=== PATIENT | male | born 1945 | race Caucasian/White ===

== ENCOUNTER 2021-07-13 09:24 | Emergency (ER) | payer BC ==
[~2021-07-13] VITALS: Ht 186.7 cm; Wt 83.1 kg
[2021-07-13] MEDS ORDERED: iohexol 300mg/ml 100ml inj. ONE (11:04)
[2021-07-13 11:24] LABS: BASOPHILS # (AUTO) 0.1 X10'3 (0-0.2); BASOPHILS % (AUTO) 0.8 % (0-1); EOSINOPHILS # (AUTO) 0.2 X10'3 (0-0.9); EOSINOPHILS % (AUTO) 2.1 % (0-6); HEMATOCRIT 38.6 % (42.0-52.0); HEMOGLOBIN 13.1 g/dl (14.0-17.9); LYMPHOCYTES # (AUTO) 1.4 X10'3 (1.1-4.8); MEAN CORPUSCULAR HEMOGLOBIN 31.8 PG (27.0-31.0); MEAN CORPUSCULAR HGB CONC 33.9 g/dL (33.0-36.5); MEAN CORPUSCULAR VOLUME 93.9 FL (78-98); MEAN PLATELET VOLUME 7.3 FL (7.4-10.4); MONOCYTES # (AUTO) 1.6 X10'3 (0-0.9); MONOCYTES % (AUTO) 15.5 % (2-12); NEUTROPHILS # (AUTO) 7.3 X10'3 (1.8-7.7); NEUTROPHILS % (AUTO) 68.6 % (42-75); PLATELET COUNT 384 X10'3 (140-440); RED BLOOD COUNT 4.11 X10'6 (4.70-6.10); RED CELL DISTRIBUTION WIDTH 12.8 % (11.5-14.5); WHITE BLOOD COUNT 10.6 X10'3 (4.5-11.0)
[2021-07-13 11:25] LABS: ALBUMIN 3.3 G/DL (3.4-5.0); ANION GAP 8 (8-16); BLOOD UREA NITROGEN 13 MG/DL (7-18); BUN/CREATININE RATIO 12.5 (5.4-32.0); CALCIUM 8.9 MG/DL (8.5-10.1); CHLORIDE 101 MMOL/L (99-107); CREATININE 1.04 MG/DL (0.60-1.10); GLUCOSE 109 MG/DL (70-104); SODIUM 138 MMOL/L (135-145); TOTAL CARBON DIOXIDE 28.6 MMOL/L (24-32); eGFR 70 ML/MIN
[2021-07-13] MEDS ORDERED: LIDOcaine Viscous 15ml cup MM ONE (13:05)
[2021-07-13] MEDS ORDERED: clindamycin 600mg/D5W 50ml 50 ML IV ONE (13:40)
[2021-07-13] MEDS ORDERED: CLIN150C8 PO (13:48)
[2021-07-13] MEDS ORDERED: PRED20TA PO (13:48)
[2021-07-13] MEDS ORDERED: dexamethasone inj 6 MG in dextrose 5%-water 100 ML IV ONE (14:15)
[2021-07-13 14:28] VITALS: BP 147/78
== END 2021-07-13 14:29 | disposition home or self-care (01) ==
LOC: ER 09:25
DX: J36 Peritonsillar abscess (principal); Z88.0 Allergy status to penicillin; Z98.890 Other specified postprocedural states
CPT/HCPCS: 36415; 42700; 70491; 80048; 84145; 85025; 96365; 96375; 99285; J1100; J3490; J7060; Q9967; 96368

== ENCOUNTER 2023-03-31 10:43 | Day surgery (SDC) | payer BC ==
[2023-03-31] VITALS (13 sets, daily range): BP systolic 133–188; BP diastolic 61–99; PULSE 54–63; RESP 14–16; TEMP 98; O2SAT 95–100
[~2023-03-31] VITALS: Ht 185.4 cm; Wt 96.8 kg
[~2023-03-31 10:43] MED LIST: CLIN-214 PO
[2023-03-31] MEDS ORDERED: normal saline 1000ml 1,000 ML IV PRN (11:05)
[2023-03-31] MEDS ORDERED: NO HOME MEDS (11:05)
[2023-03-31 11:32] LABS: BASOPHILS % (AUTO) 0.6 % (0-1); EOSINOPHILS # (AUTO) 0.1 X10'3 (0-0.9); EOSINOPHILS % (AUTO) 0.7 % (0-6); HEMATOCRIT 45.7 % (42.0-52.0); HEMOGLOBIN 15.3 g/dl (14.0-17.9); LYMPHOCYTES # (AUTO) 1.3 X10'3 (1.1-4.8); LYMPHOCYTES % (AUTO) 15.8 % (21-51); MEAN CORPUSCULAR HGB CONC 33.4 g/dL (33.0-36.5); MEAN CORPUSCULAR VOLUME 92.9 FL (78-98); MEAN PLATELET VOLUME 7.1 FL (7.4-10.4); MONOCYTES # (AUTO) 1.2 X10'3 (0-0.9); MONOCYTES % (AUTO) 15.1 % (2-12); NEUTROPHILS # (AUTO) 5.6 X10'3 (1.8-7.7); NEUTROPHILS % (AUTO) 67.8 % (42-75); PLATELET COUNT 368 X10'3 (140-440); RED BLOOD COUNT 4.92 X10'6 (4.70-6.10); RED CELL DISTRIBUTION WIDTH 13.3 % (11.5-14.5); WHITE BLOOD COUNT 8.2 X10'3 (4.5-11.0)
[2023-03-31 11:41] LABS: PROTHROMBIN TIME 10.8 SECONDS (9.0-12.0)
[2023-03-31 11:59] LABS: TOTAL CELLS COUNTED 100
[2023-03-31 12:00] LABS: HYPERSEGMENTED NEUTROPHILS FEW; LARGE PLATELETS FEW; PLATELET ESTIMATE NORMAL
[2023-03-31] MEDS ORDERED: fentaNYL/PF 50MCG/1 ML 2ML syringe ONE (12:04)
[2023-03-31] MEDS ORDERED: gelatin sponge, absorbable (Gelfoam 12-7MM) sponge TP ONE (12:05)
[2023-03-31] MEDS ORDERED: midazolam 1 mg/ML 2ml injection ONE (12:05)
[2023-03-31] MEDS ORDERED: HYDROcodone/acetaminophen 5mg/325mg tablet PO PRN (12:50)
[2023-03-31] MEDS ORDERED: normal saline 1000ml 1,000 ML IV SCH (12:50)
== END 2023-03-31 15:15 | disposition home or self-care (01) ==
LOC: SSTAY O 10:43
PROVIDERS: ATTEND Radiology Vascular & Interventional Radiology
DX: K76.89 Other specified diseases of liver (principal); Z88.0 Allergy status to penicillin
CPT/HCPCS: 36415; 47000; 77012; 85025; 85610; J2250; J3010; J7030; 85007; 99152; 99153; A4615